=== PATIENT | male | born 2005 | race Caucasian/White ===

== ENCOUNTER 2025-08-04 09:05 | Emergency (ER) | payer BC, SELFPAY ==
[2025-08-04 09:07] VITALS: BP 140/95
--- NOTE | 2025-08-04 09:37 | ED.GENMED ---
History of Present Illness
General
Chief Complaint: Chest Pain
Source: patient and family
Exam Limitations: none
Time Seen by Provider: 08/04/25 09:14
History of Present Illness
History of Present Illness:
19yoM with a history of asthma and ADHD presenting with his parents for evaluation of chest pain. Symptoms began 2 days ago. He reports a sharp, cramping pain in his bilateral lower rib area. Symptoms are intermittent and last about 10 to 15
minutes before resolving. Symptoms come on randomly and nothing seems to make it worse. Using his albuterol inhaler helps slightly. He denies any shortness of breath, pleuritic pain, fevers, cough. He also reports ongoing stomach issues for the
past several weeks. He reports bloating in his intestines with weight loss. He weighed 205 pounds in November of this year and weight is now down to 143. He typically has diarrhea and took Imodium last week. He is now constipated and has not had
a BM in the past 4 days. He was seen by [facility] and has an EGD and colonoscopy scheduled for next week.
After initial exam, father called me aside stating concerns that patient may be using drugs. Patient vapes nicotine and also smokes marijuana. Father is unsure if he may be using any thing. He had to leave college early last year due to poor
performance and he currently attends community college.
Phy Exam
General Physical Exam
General Presentation: well appearing and no apparent distress
General Skin: warm and dry
General Habitus: normal
General Mental: alert
ENT Exam
ENT Exam: normocephalic
Cardiovascular Exam
Cardiovascular Exam: regular rate/rhythm, no edema and no murmur
Pulmonary Exam
Pulmonary Exam: lungs clear, no respiratory distress, no rales, no crackles, no rhonchi and no wheezing
Gastrointestinal Exam
Gastrointestinal Exam: soft, non distended and other (Mild diffuse abdominal tenderness. Abdomen soft, non-distended. No rebound or guarding.)
Neurological Exam
Neurological Exam: alert
Lesli Coma Scale
Eye Opening: Spontaneous
Verbal Response: Oriented
Motor Response: Obeys Commands
GCS Total Score: 15
Skin Exam
Skin Exam: normal color and warm/dry
Psychiatric Exam
Psychiatric Exam: normal mood/affect
Scores
Heart Score for Chest Pain Patients
STEMI patient?: No
History: Slightly or Non-Suspicious
ECG: Normal
Age: </= 45 years
Risk Factors: No Risk Factors
Troponin: </= Normal Limit
Heart Score for Chest Pain Patients: 0
Heart Score Risk: 2.5% MACE over next 6 weeks
Course
Orders/Labs/Results
Orders:
Orders
08/04/25 09:13
EKG [Electrocardiogram (*1)] Urgent
Reason for Study: Chest Pain
EKG- Treatment ONCE
08/04/25 09:35
0.9% Sodium Chloride 1000 ml [Nss] 1,000 ml IV BOLUS
Iohexol [Omnipaque] See Protocol PO NOW STA
08/04/25 09:36
CT Abd/pel W Iv And Oral Contr Urgent
Comment:
Reason For Exam: generalized abd pain, weight loss
Cardiac Monitoring- Treatment ONCE
CR Chest - 2 Views Urgent
Comment:
Reason For Exam: CP
08/04/25 09:51
Urine Drug Abuse Screen Urgent
Date Specimen was Collected: 08/04/25
Time Specimen was Collected: 09:43
08/04/25 10:43
Complete Blood Count/With Diff Urgent
Comprehensive Metabolic Panel Urgent
Lipase Urgent
TSH Reflex To Free T4 Urgent
Troponin I Urgent
Abnormal Lab Results
08/04/25 08/04/25
09:51 10:43
MPV 11.4 H fL
(7.4-10.4)
Absolute Lymphs (auto) 1.1 L 10^3/uL
(1.2-3.4)
Monocytes % 10.3 H %
(1.7-9.3)
Carbon Dioxide 19 L mmol/L
(22-30)
Calcium 10.6 H mg/dl
(8.4-10.2)
Total Bilirubin 2.8 H mg/dl
(0.2-1.3)
Total Protein 8.8 H g/dl
(6.3-8.2)
Albumin 5.7 H g/dl
(3.5-5.0)
U Marijuana (THC) Screen Positive H
(Negative)
08/04/25 10:43
08/04/25 10:43
Vital Signs
Initial and Last Documented VS:
Initial Vital Signs
Temp Pulse Resp BP Pulse Ox
98.5 F 81 16 140/95 97
08/04/25 09:07 08/04/25 09:07 08/04/25 09:07 08/04/25 09:07 08/04/25 09:07
Last Documented Vital Signs
Temp Pulse Resp BP Pulse Ox
98.5 F 74 20 132/82 100
08/04/25 09:07 08/04/25 10:44 08/04/25 10:44 08/04/25 13:02 08/04/25 10:44
MDM/Problems Addressed
Differential Diagnosis Includes:
19yoM here with abd pain and bloating x several weeks-months with weight loss. Also c/o chest pain x 2 days. VSS. He is well appearing in no distress and exam is reassuring. Differential diagnosis includes but is not limited to: musculoskeletal
chest pain, pneumothorax, pneumonia, pleurisy, doubt ACS given age
Initial ED plan: Triage EKG shows NSR without ischemic changes. Will check abdominal labs, troponin, CXR, and CT abdomen with IV/PO contrast.
*Pulse Oximetry
SaO2: 97
Oxygen Mode of Delivery: Room air
Patient hypoxic: no
*EKG
Interpreted by ED Provider?: Yes
EKG Intrepretation Date: 08/04/25
Heart Rate: 66
Rate: normal
Rhythm: sinus
[place]and: normal axis
Interval: normal interval
QRS Pattern: normal QRS
Ischemia: no ischemia
*Critical Care Note
Total Time (30-74mins, 75-104mins- exclusive of procedures): Not Applicable
Update Note
Update Note:
Labs reveal a bilirubin of 2.8 with otherwise normal LFTs suggesting possible underlying Gilbert syndrome. Remainder of labs unremarkable including normal troponin, white count, lipase. CXR clear. CT abdomen shows lymphadenopathy in RLQ which may be
seen with mesenteric adenitis. No other abnormalities seen on imaging. Patient stable for discharge. He was advised to use Miralax as needed for constipation. He has an endoscopy and colonoscopy scheduled for next week. Patient and parents in
agreement with plan.
ED Attending Note
-
Portions of this chart may have been created with voice recognition software.� Occasional wrong word or��sound alike� substitutions may have occurred due to the inherent limitations of voice recognition software.
Discharge Plan
Departure
Patient Disposition: Home (Routine Discharge)
Date of Disposition: 08/04/25
Time of Disposition: 14:11
Patient with high blood pressure during this ER visit?: No
Discharge Problem:
Chest pain, Abdominal bloating, Weight loss
Instructions: Chest Pain PCP Follow Up
Referrals:
Sheila Ortiz DO [Family Provider, Family Practice]
Activity Restrictions/Additional Instructions:
Increase your fluid and fiber intake. Take Miralax 1-2x daily as needed for constipation.
Please follow-up with your family doctor and powerbuilder. Return to the ER with any new or worsening symptoms.
Interventions
Interventions:
*Risk Screen - Suicide Last Done: 08/04/25 09:07
*General Assessment Last Done: 08/04/25 09:36
*Neglect/Abuse Screening Last Done: 08/04/25 09:07
*ED- Fall Risk Assessment Last Done: 08/04/25 09:36
ED- Cardiac Assessment Last Done: 08/04/25 09:36
Discharge Date and Time
Print Language: EMIRATI
[2025-08-04 09:41] VITALS: BP 122/83
[2025-08-04] MEDS: OMNIPAQUE 50 ML PO (09:50)
[2025-08-04] MEDS: NSS 1000 IV (09:50)
[2025-08-04 10:00] VITALS: BP 127/82
[2025-08-04 11:49] LABS: Hematocrit 46.9 % (39.0-52.0); Hemoglobin 16.8 g/dL (13.0-18.0); Mean Corp Hgb Conc. 35.8 g/dL (33.0-37.0); Mean Corpuscular Volume 80.9 fL (80.0-94.0); Nucleated Red Blood Cells % 0 % (-); Platelet Count 176 10^3/uL (130-400); Red Cell Dist. Width 11.9 % (11.5-14.5)
[2025-08-04 12:07] LABS: ALT (SGPT) 11 U/L (0-50); AST (SGOT) 18 U/L (17-59); Albumin 5.7 g/dl (3.5-5.0); Alkaline Phosphatase 78 U/L (38-126); Blood Urea Nitrogen 18 mg/dl (9-20); Calcium 10.6 mg/dl (8.4-10.2); Carbon Dioxide 19 mmol/L (22-30); Chloride 101 mmol/L (98-107); Glucose 81 mg/dl (70-99); Lipase 97 U/L (23-300); Potassium 4.2 mmol/L (3.5-5.1); Sodium 137 mmol/L (135-145); Total Protein 8.8 g/dl (6.3-8.2); eGFR > 60.00
[2025-08-04 12:18] LABS: Troponin I < 0.012 ng/ml
[2025-08-04 13:02] VITALS: BP 132/82
== END 2025-08-04 14:30 | disposition home or self-care (01) ==
LOC: EMR 09:05
PROVIDERS: Physician Assistant; EMERGENCY PHYSICIAN Emergency Medicine; FAMILY PHYSICIAN Family Medicine
DX: R07.9 Chest pain, unspecified (principal); R14.0 Abdominal distension (gaseous); R63.4 Abnormal weight loss; K59.00 Constipation, unspecified; J45.909 Unspecified asthma, uncomplicated; F90.9 Attention-deficit hyperactivity disorder, unspecified type; F12.90 Cannabis use, unspecified, uncomplicated; F17.290 Nicotine dependence, other tobacco product, uncomplicated
CPT/HCPCS: 99284; 96360; 71046; 74177; 80053; 80306; 83690; 84443; 84484; 85025; 93005; Q9967